=== PATIENT | female | born 1960 | race Caucasian/White ===

== ENCOUNTER → 2019-08-13 17:03 | Outpatient (CLI) | payer OTHER, SELFPAY ==
--- NOTE | 2019-08-13 17:30 | MRI_ITS ---
STUDY: MRI BRAIN WITH AND WITHOUT CONTRAST REASON FOR EXAM: Female, 59 years old. Hearing loss LEFT ear X 3 MONTHS TECHNIQUE: Standardized multiplanar fat and water weighted pulse sequences were obtained. 22ml Dotarem via IV was administered for the contrast portion of the examination. COMPARISON: MRI of the internal auditory canal with and without intravenous contrast. FINDINGS: There is mild cerebral atrophy with widening of the extra-axial spaces and ventricular dilatation. There are a limited number of small white matter hyperintensities, distributed throughout the deep white matter tracts of the cerebral hemispheres, consistent with mild chronic white matter ischemic changes. There is no evidence for recent intracranial ischemia or other cause of cytotoxic edema on diffusion weighted imaging (DWI). Normal bilateral frontal poles, and orbital frontal and gyrus recti of the frontal lobes. Normal bilateral temporal tips of the temporal lobes. There are no white matter shear injuries (diffuse axonal injuries). There are no parenchymal hemorrhages or hematomas. There are no findings to suggest prior closed head parenchymal injury of the brain. Normal bilateral basal ganglia. Normal thalami. There is no extra-axial fluid accumulation. Normal flow voids within the major intracranial circulation suggesting patency by spin echo criteria. Normal venous enhancement. There is no enhancing intra-axial or extra-axial abnormality. No demonstrated mass. Normal sella turcica, pituitary gland, infundibular stalk, optic chiasm and hypothalamus. Normal tectal plate and pineal gland. Normal midbrain, mitra and medulla. Normal cerebellum. Normal basal cisterns. Normal bilateral temporal bones. Normal bilateral internal auditory canals. No demonstrated orbital abnormality, within the constraints of a routine brain study. Normal visualized paranasal sinuses. Normal calvarium and skull base. Normal visualized soft tissue structures. IMPRESSION: Chronic ischemic and involutional changes of the brain, as described above. Electronically Signed: Francis Torres MD at 23:55 EDT , Service support , STUDY: MRI BRAIN WITH AND WITHOUT CONTRAST (ATTENTION INTERNAL AUDITORY CANALS - I.A.C.''s) REASON FOR EXAM: Female, 59 years old. Hearing loss LEFT ear X 3 MONTHS TECHNIQUE: Standardized multiplanar fat and water weighted pulse sequences were obtained. 22 ml of Dotarem contrast material was administered intravenously for the contrast portion of the examination. COMPARISON: MRI of the brain dated August 13, 2019 FINDINGS: Normal bilateral temporal bones. Normal bilateral internal auditory canals. There is no demonstrated intracanalicular or cisternal vestibular schwannoma (acoustic neuroma). There is no enhancement of the bilateral VIIth or VIIIth cranial nerves. Normal bilateral cochlea, vestibules and semicircular canals. No cerebellar angle or pontine mass is seen. No visualized enlargement of the trigeminal or abducens nerves. There is mild cerebral atrophy with widening of the extra-axial spaces and ventricular dilatation. There are a limited number of small white matter hyperintensities, distributed throughout the deep white matter tracts of the cerebral hemispheres, consistent with mild chronic white matter ischemic changes. Minimal mucus opacification is seen in the inferior aspect of the left mastoid air cells. The right mastoid air cells are clear. Normal flow voids within the major intracranial circulation suggesting patency by spin echo criteria. Normal venous enhancement. There is no enhancing intra-axial or extra-axial abnormality. There is no extra-axial fluid accumulation. Normal midbrain, mitra and medulla. Normal cerebellum. Normal basal cisterns. No demonstrated orbital abnormality, within the constraints of a routine brain study. Normal visualized paranasal sinuses. Normal calvarium and skull base. Normal visualized soft tissue structures. Normal visualized upper cervical spine. MRI/Brain W/WO Contrast IMPRESSION: 1. Normal unenhanced and enhanced MRI of the bilateral internal auditory canals (I.A.C''s). 2. Minimal mucus opacification is seen in the inferior aspect of the left mastoid air cells. The right mastoid air cells are clear. 3. CT of the temporal bones can be obtained for greater evaluation of the inner ear ossicles and fine bony detail that is best evaluated on CT, if this is clinically indicated. Electronically Signed: Francis Torres MD at 16:44 EDT , Service support ,
== END ==
PROVIDERS: PCP Student in an Organized Health Care Education/Training Program; Referring Provider Otolaryngology; Visit Provider Otolaryngology
DX: H93.12 Tinnitus, left ear (principal)
CPT/HCPCS: 70553; A9575

== ENCOUNTER 2022-03-14 08:58 | Emergency (ER) | payer OTHER, SELFPAY ==
[2022-03-14 08:59] VITALS: BP 205/78; PULSE 80; RESP 22; TEMP 36.3; O2SAT 97; BMI 44.1
--- NOTE | 2022-03-14 09:08 | RAD_ITS ---
STUDY: X-RAY CHEST REASON FOR EXAM: Female, 61 years old. Pre-op TECHNIQUE: Single AP portable view of the chest. COMPARISON: None. FINDINGS: The lungs are clear and expanded. There is no demonstrated pleural abnormality. There is mild cardiac enlargement. Normal mediastinum and cherelle. Normal visualized pulmonary arteries. Normal visualized aortic arch and descending thoracic aorta. Normal visualized thoracic spine. Normal visualized ribs, clavicles, and shoulders. There is no demonstrated abnormality of the visualized soft tissue structures of the upper abdomen. RAD/Chest 1 View (Portable) IMPRESSION: Cardiomegaly. The lungs are clear. Electronically Signed: Gamal Danielle MD at 10:07 [facility] ,
--- NOTE | 2022-03-14 09:08 | EKG12_ITS ---
Test Reason : Blood Pressure : / mmHG Vent. Rate : 071 BPM Atrial Rate : 071 BPM P-R Int : 142 ms QRS Dur : 086 ms QT Int : 414 ms P-R-T Axes : 021 -04 003 degrees QTc Int : 449 ms Normal sinus rhythm Minimal voltage criteria for LVH, may be normal variant ( R in aVL ) Borderline ECG Confirmed by BORIS PARDO, CHANTEL ([id number]), newspaper copy editor TOMMIE GARZA ([id number]) on 03/16/2022 10:33:46 AM Referred By: Confirmed By:CHANTEL ESCALANTE MD
--- NOTE | 2022-03-14 09:09 | RAD_ITS ---
STUDY: X-RAY - LEFT FEMUR REASON FOR STUDY: Female, 61 years old. Injury/Pain -- History of lesion femur, suspect pathologic fract TECHNIQUE: 4 view(s) of the femur. COMPARISON: None. FINDINGS: Transverse fracture through the mid shaft of the femur with underlying bony pathology suggestive of a pathological fracture. There is evidence of a lateral and anterior angulation. Soft tissue swelling. RAD/Femur Min 2 Views IMPRESSION: Pathological fracture through the midshaft of the femur with the lateral and anterior angulation. Electronically Signed: Gamal Danielle MD at 10:08 EST ,
--- NOTE | 2022-03-14 09:10 | ED.VIS.LOWEX ---
HPI History of Present Illness Chief Complaint: Lower Extremity Injury Detail of Chief Complaint: Deformity left lower extremity Informant: patient, parent and EMS Occured/Mechanism Comment: Patient was exiting the house using walker. Left leg gave. She developed instant pain and deformity to the left leg. Onset/Context/Timing Context: Sudden Onset Timing: Continuous Quality of Pain: - (Presently pain-free. Patient received 50 mg of ketamine and 50 mcg of fentanyl per EMS) Location: Left femur at home Current Severity: Gone Maximum Severity: Severe Worsened by: Suspected pathologic fracture Relieved by: 50 mg of ketamine and 50 mcg of fentanyl Associated Symptoms Associated Symptoms: Positive for Loss of Funtion Narrative Narrative: Patient is a 61-year-old woman recently admitted to outside facility who had x-rays that revealed a area of concern left femur. Per since patient is not able to give adequate history after receiving fentanyl and ketamine prehospital she had x-rays of the knee and hip which were unremarkable. There was area of concern femur. She was referred to Dr. Oskar Jiménez. She is scheduled for an outpatient MRI. states she was exiting the home using her walker. There was a snap and deformity to her left lower extremity. She did not fall. There was no head trauma. She was able to support herself with her right lower extremity. Per patient she has history of hypercholesterolemia and hypertension. She has no known allergies. She has not had any to eat or drink since last evening. Tetanus Immunization: Unknown Prior similar symptoms: No Recent Illness/Hospitalization: Yes [facility] Medical History Diabetes mellitus Hypercholesteremia Home Medications Lactobacillus acidophilus 10 billion cell capsule (Probiotic) 10,000 mmu cells PO DAILY [facility] 03/14/22 [History Last Taken 03/12/22] chlorthalidone 25 mg tablet 25 mg PO DAILY 03/14/22 [History Last Taken 03/13/22] cholecalciferol (vitamin D3) 50 mcg (2,000 unit) tablet 50 mcg PO DAILY 03/14/22 [History Last Taken 03/14/22] hydralazine 25 mg tablet 25 mg PO Q6H 03/14/22 [History Last Taken 03/13/22] losartan 100 mg tablet 100 mg PO DAILY 03/14/22 [History Last Taken 03/14/22] magnesium 250 mg tablet 250 mg PO DAILY SUPPLEMENT 03/14/22 [History Last Taken 03/13/22] metformin 500 mg tablet 500 mg PO DAILY 03/14/22 [History Last Taken 03/13/22] oxycodone-acetaminophen 5 mg-325 mg tablet 1 - 2 tab PO Q6H PRN Pain 03/14/22 [History Last Taken 03/14/22] rosuvastatin 10 mg tablet 10 mg PO DAILY 03/14/22 [History Last Taken 03/13/22] Allergy/AdvReac Type Severity Reaction Status Date / Time No Known Allergies Allergy Verified 05/30/16 10:38 Social History (Updated 03/14/22 @ 09:[address] Viktor Merino MD) household members: spouse Smoking Status: Never smoker alcohol intake: never substance use type: does not use ROS ROS ED Constitutional Constitutional ED: Denies chills, fever(s) or subjective Eyes Eyes: Denies blurry vision, change in vision or diplopia ENT ENT ED: Denies ear pain, rhinorrhea or sore throat Cardiovascular Cardiovascular: Denies chest pain, palpitations or racing heartbeat Respiratory/Chest Respiratory/Chest: Denies cough, dyspnea or dyspnea on exertion Gastrointestinal Gastrointestinal: Denies abdominal pain, nausea or vomiting Musculoskeletal Musculoskeletal: Reports other Details: Left thigh pain ; Denies arthralgias, back pain, myalgias or neck pain Integumentary Denies rash Neurologic Neurologic: Denies paresthesias or weakness Psychiatric Psychiatric: Denies anxiety or depression EXAM Physical Exam Const Vital Signs: 03/14/22 08:59 03/14/22 09:40 Temperature 97.3 F L Temperature Source Temporal Pulse Rate 80 75 Respiratory Rate 22 H 21 H Blood Pressure 205/78 H 155/74 H Blood Pressure Mean 120 101 Pulse Ox 97 97 Oxygen Delivery Method Room Air Room Air Positive well nourished, well developed and obese Constitutional Narrative: Patient is slow to respond. Eyes are glassy. General Appearance ED: well developed and NAD Nutritional Appearance: obese HEENT Reports moist mucous membranes HEENT Narrative: Ears normal. Nares patent. No evidence of dental trauma. No evidence of malocclusion. normocephalic and atraumatic Eyes PERRL Eyes Narrative: Extract muscle intact. There is no nystagmus. There is no scleral icterus. There subconjunctival hemorrhage. Neck full ROM and supple Chest Wall inspection of chest normal and palpation of chest normal Resp normal respiratory effort, no retractions and clear to auscultation bilaterally Cardio regular rate, regular rhythm, S1 normal heart sound, S2 normal heart sound and no murmurs GI non-tender, non-distended and no masses Auscultation: normoactive bowel sounds Palpation: soft Back/Spine Cervical Spine: Negative for cervical spine tenderness Extremity Negative for normal to inspection or full ROM Extremity Narrative: There is shortening of the left lower extremity. The foot is slightly externally rotated. DP and PT pulse are palpable. General Extremety ED: Yes weight-bearing difficulty; Negative for cyanosis or edema General Extremity: weight-bearing difficulty; Negative for cyanosis or edema Neuro oriented x3, CN's II-XII intact bilaterally and no sensory deficits noted Sensorium / Orientation: Negative for alert Plantar Reflex: Downgoing: bilateral Psych mental status grossly normal Skin no wounds Lesions: no lesions Rashes: no rashes MDM MDM MDM Narrative Medical decision making narrative: Is aSuspect patient has a pathologic fracture of her left femur. X-rays were obtained. Chest x-ray is obtained for preoperative clearance and restratification as well as EKG and appropriate blood work. Presently patient is in no pain. IV was established. She was made NPO. Of note initial blood pressure is elevated 205/78. Will monitor. Case discussed with Dr. Oskar Jiménez. Since this is a pathologic fracture he recommended transfer to [facility] with referral to orthopedic oncologist. [employer] has been transfer line at [facility] and asked for Dr. Jair Heller who is an orthopedic oncologist. Patient's blood pressure did improve after history of Dilaudid. Suspect this is due to pain. Dr. Heller did accept patient. She will be an ER to ER transfer. Rapid COVID was ordered. Lab Data Attestation: I reviewed the patient's lab results. Lab results narrative: White count is slightly elevated which is nonspecific. H&H is slightly higher than baseline. Basic metabolic panel reveals an elevated BUN/creatinine ratio of 22.6-1. Glucose is slightly elevated. Patient denies history of diabetes. Calcium slightly elevated 10.3. This will need to be followed. Labs: Laboratory Results - last 24 hr 03/14/22 03/14/22 09:10 09:10 WBC 12.2 H RBC 4.62 Hgb 13.3 Hct 40.2 MCV 87.0 MCH 28.8 MCHC 33.1 RDW Std Deviation 43.8 RDW Coeff of Mouna 13.8 Plt Count 230 MPV 9.7 Immature Gran % (Auto) 0.700 Neut % (Auto) 74.0 H Lymph % (Auto) 18.1 L [place] % (Auto) 5.3 Eos % (Auto) 1.4 Baso % (Auto) 0.5 Absolute Neuts (auto) 9.0 H Absolute Lymphs (auto) 2.20 Nucleated RBC % 0 Sodium 135 L Potassium 3.5 Chloride 98 Carbon Dioxide 26.0 Anion Gap 11 BUN 21 H Creatinine 0.93 Estim Creat Clear Calc 48.54 Est GFR (MDRD) Af Amer 79 Est GFR (MDRD) Non-Af 65 BUN/Creatinine Ratio 22.6 H Glucose 192 H Calcium 10.3 H Radiography X-Ray: Read by ED Physician (2 view x-ray of the left femur reveals a pathologic fracture midshaft with displacement of approximately 10 to 25%. This was independently reviewed and interpreted by me as was the chest x-ray at 0936. And angulation.) and - (Single view portable chest x-ray is limited since it is supine with limited inspiration. Clips from fall are noted. There is evidence of cardiomegaly. There is no evidence of hemothorax or pneumothorax. There is no obvious fractured ribs.) Diagnostic Testing: Clinical Impression(s) from Imaging Studies Chest X-Ray 03/14/22 09:08 IMPRESSION: Cardiomegaly. The lungs are clear. Electronically Signed: Gamal Danielle MD at 10:07 EST , Femur X-Ray 03/14/22 09:09 IMPRESSION: Pathological fracture through the midshaft of the femur with the lateral and anterior angulation. Electronically Signed: Gamal Danielle MD at 10:08 EST , Discharge Plan Triage Chief Complaint: Lower Extremity Injury ED Provider: Viktor Merino Dx/Rx/DC Orders Clinical Impression: Pathological fracture, left femur, initial encounter for fracture, Hypertension, Acute hyperglycemia, Hypercholesterolemia Prescriptions: No Action metformin 500 mg tablet 500 mg PO DAILY Label Comments: take 1 tablet by mouth once daily WITH A MEAL hydralazine 25 mg tablet 25 mg PO Q6H Label Comments: take 1 tablet by mouth four times a day losartan 100 mg tablet 100 mg PO DAILY Label Comments: take 1 tablet by mouth once daily rosuvastatin 10 mg tablet 10 mg PO DAILY Label Comments: take 1 tablet by mouth at bedtime cholecalciferol (vitamin D3) 50 mcg (2,000 unit) tablet 50 mcg PO DAILY Label Comments: take 1 tablet by mouth once daily with food chlorthalidone 25 mg tablet 25 mg PO DAILY Label Comments: take 1 tablet by mouth once daily oxycodone-acetaminophen 5-325 mg tablet 1 - 2 tab PO Q6H PRN (Reason: Pain) Label Comments: take 1 to 2 tablets by mouth every 6 hours if needed for pain magnesium 250 mg Tablet 250 mg PO DAILY Probiotic 10 billion cell Capsule 10,000 mmu cells PO DAILY Primary Care Provider: Denilson Parra Referrals: Denilson Parra DO [Primary Care Provider] - Disposition Disposition: Acute Care Hospital Discharge Location: [facility]
[2022-03-14 09:19] LABS: Basophil# 0.06 X10^3/uL; Basophil% 0.5 % (0-1); Eosinophil# 0.17 X10^3/uL; Eosinophils% 1.4 % (0-5); Hematocrit 40.2 % (37-47); Hemoglobin 13.3 g/dL (12.0-15.0); Lymphocyte % 18.1 % (19-41); Mean Corp Hgb Conc 33.1 g/dL (32-36); Mean Corpuscular Hgb 28.8 pg (27.0-32.0); Mean Platelet Vol. 9.7 fl (6.2-12.0); Monocyte# 0.65 X10^3/uL; Monocyte% 5.3 % (0-10); NRBC Flagged by Analyzer 0 % (0-5); Neutrophil # 9.01 X10^3/uL (2.7-7.7); Platelet Count 230 K/mm3 (150-450); RBC Distribution Width CV 13.8 % (11.6-14.6); RBC Distribution Width SD 43.8 fl (35.1-43.9); Red Blood Count 4.62 M/mm3 (4.2-5.4); White Blood Count 12.2 K/mm3 (4.4-11.0)
[2022-03-14 09:30] LABS: Anion Gap 11 (5-15); BUN 21 mg/dL (7-18); BUN/Creat Ratio 22.6 RATIO (10-20); Calcium,Total 10.3 mg/dL (8.5-10.1); Chloride 98 mmol/L (98-107); Creatinine, Serum 0.93 mg/dL (0.55-1.02); EST Glomerular Filtration Rate 65 mL/min (>60); Est Glom Filt Rate - Afr Amer 79 mL/min (>60); Estimated Creatinine Clearance 48.54 ml/min; Glucose 192 mg/dL (74-106); Potassium 3.5 mmol/L (3.5-5.1); Sodium Level 135 mmol/L (136-145)
[2022-03-14 09:40] VITALS: BP 155/74; PULSE 75; RESP 21; O2SAT 97
[2022-03-14] MEDS: HYDROmorphone 1 MG/ML Syringe IV ×2 (09:50→11:37)
[2022-03-14] MEDS: 0.9% Normal Saline 1,000 ML 150 ML IV (09:50)
--- NOTE | 2022-03-14 10:37 | ED.RN ---
ETA FOR [facility] IS 2142
[2022-03-14 10:43] VITALS: BP 169/82; PULSE 76; RESP 19; O2SAT 96
[2022-03-14 11:10] VITALS: BP 169/82; PULSE 79; RESP 19; O2SAT 96
[2022-03-14 11:44] VITALS: BP 150/71; PULSE 78; RESP 17; O2SAT 96
== END 2022-03-14 12:18 | disposition short-term general hospital (02) ==
PROVIDERS: Emergency Provider Emergency Medicine; PCP Student in an Organized Health Care Education/Training Program; Visit Provider Emergency Medicine
DX: M84.452A Pathological fracture, left femur, initial encounter for fracture (principal); E11.65 Type 2 diabetes mellitus with hyperglycemia; X58.XXXA Exposure to other specified factors, initial encounter; Y93.01 Activity, walking, marching and hiking; Y92.009 Unspecified place in unspecified non-institutional (private) residence as the place of occurrence of the external cause; E78.00 Pure hypercholesterolemia, unspecified; I10 Essential (primary) hypertension; Z79.84 Long term (current) use of oral hypoglycemic drugs; Z79.899 Other long term (current) drug therapy
CPT/HCPCS: 71045; 73552; 80048; 85025; 87428; 93005; 96361; 96374; 96376; 99285; J7030; A4216

== ENCOUNTER → 2022-06-14 | Outpatient (CLI) | payer OTHER, SELFPAY ==
--- NOTE | 2022-06-14 09:30 | PET_ITS ---
EXAMINATION: FDG PET-CT INDICATIONS: A 62-year-old female with a history of multiple myeloma presenting for apparent initial staging examination. COMPARISON EXAMINATION: None available INDEX LESION SIZE SUV INTERPRETATION Right lobe hepatic parenchyma segment VII (n=1) 18.9 mm 4.3 max > 2.0 Fulfills quantitative criteria for viable neoplasm. Appendicular, axial skeleton, calvarium 12.3 max Quantitative criteria for viable neoplasm are fulfilled. TECHNIQUE: Following the intravenous administration of 13.78 mCi of F-18 deoxyglucose via the left antecubital fossa, multiplanar image acquisitions of the head, neck, chest, abdomen and pelvis to level of mid-thigh, lower extremities obtained at one hour post radiopharmaceutical administration contemporaneously interpreted with the current CT of the head, neck, chest, abdomen and pelvis to level of mid-thigh, lower extremities dated 06/14/22 via coregistration reveal: SERUM GLUCOSE LEVEL: 133 mg/dl. HEIGHT: 61 inches. WEIGHT: 204 lbs. FINDINGS: Head/Neck: There is no evidence of abnormal increased glucose metabolism in the pharyngeal mucosal space, parapharyngeal space, bilateral-lateral and anterior neck, hypopharynx and distribution of the laryngeal structures. The visualized portion of the cerebral cortical-subcortical structures demonstrate symmetric and preserved glucose metabolism. CHEST: There is no quantitative scintigraphic evidence of abnormal increased glucose metabolism within the context of the bilateral hemithorax pulmonary parenchyma, right and left hemithoracic pleural interface, mediastinal structures and thoracic perihilum.? Pertinent chest CT findings are as follows. A left hemithorax pleural effusion is nonglucose avid. There is atherosclerotic calcification defined in the thoracic aorta without evidence of dilatation-aneurysm formation. Coronary arterial calcification is observed. Bilateral subcentimeter axillary soft tissue densities reveal no evidence of increased FDG uptake. Abdomen/Pelvis: A single focus of increased radiopharmaceutical concentration is noted within the right lobe hepatic parenchyma (2.7) involving segment VII. The calculated maximum standard uptake value is 4.3 with a lesion to liver background ratio greater than 2.0. The maximum axial diameter of the metabolic, morphologic abnormality is 18.9 mm. Normal physiologic distribution of the radiopharmaceutical is apparent in the splenic parenchyma, both renal units, bladder and visualized intestinal tract. Diffuse radiopharmaceutical concentration is noted in all four quadrants of the abdomen and pelvis. The abdomen and pelvis CT findings are as follows. Calcification is defined in the left adnexal region without evidence of increased tracer uptake. Soft tissue densities defined in the bilateral inguinal region as well as the anterior pelvic wall are nonglucose avid. The gallbladder is surgically absent. The left lobe of the liver is prominent in size extending to the lateral abdominal wall. Skeletal: Increased radiopharmaceutical concentration is defined in the left frontal parietal calvarium, the right temporal bone, multifocally apparent throughout the visualized appendicular and axial skeleton too many to individually articulate, multiple thoracic lumbar thoracic vertebra, bilateral ribs, the bilateral proximal humeral metaphysis-diaphysis, the left mid-distal humeral diaphysis, the proximal-distal right femoral diaphysis, the bilateral proximal tibial metaphysis, and bilateral hemipelvis. The calculated maximum standard uptake value is 12.3. PET/PET/CT Tumor WB Initial IMPRESSION: 1. ABNORMAL EXAMINATION INDICATIVE OF MALIGNANT-VIABLE NEOPLASM. 2. Increased radiopharmaceutical concentration manifest in the right lobe hepatic parenchyma fulfills quantitative criteria for viable neoplasm. (Maikel et al, Archives of Surgery, 133:510 1997) 3. Disseminated radiopharmaceutical concentration noted throughout the visualized appendicular and axial skeleton fulfills quantitative criteria for viable neoplasm. (Talat et al, Clinical Nuclear Medicine, 29:161, 2004). Electronic Signature Luis Downing D.O. Accurate Quantification of SUVs for this report are calculated using the exclusive [employer]. ([place].S. Patent No. [phone] [phone] B2 US [phone] [place] patent [phone]). Standardization and correction of the FDG SUV metric via ACCUQUAN technology allow for vendor non-specific objective quantitative examination comparison and optimization of the sensitivity and specificity of the FDG PET-CT examination. Electronically Signed: Luis Downing, at 6:46 EDT ,
== END | disposition home or self-care (01) ==
LOC: ONC 09:06
PROVIDERS: PCP Student in an Organized Health Care Education/Training Program; Referring Provider Internal Medicine Hematology & Oncology; Visit Provider Internal Medicine Hematology & Oncology
DX: C90.00 Multiple myeloma not having achieved remission (principal); G89.3 Neoplasm related pain (acute) (chronic); M89.8X9 Other specified disorders of bone, unspecified site; M25.561 Pain in right knee; M25.551 Pain in right hip
CPT/HCPCS: 78816; A9552

== ENCOUNTER → 2022-07-07 | Outpatient (CLI) | payer OTHER, SELFPAY ==
--- NOTE | 2022-07-07 13:11 | VDLE_ITS ---
Reason For Study: DVT RIGHT LEFT GSV is normal. GSV is normal. CFV is compressible, spontaneous, phasic, CFV is compressible, spontaneous, phasic, competent and demonstrates normal competent, and demonstrates normal augmentation. augmentation. FV is compressible, spontaneous, phasic, FV is compressible, spontaneous, phasic, competent and demonstrates normal competent and demonstrates normal augmentation. augmentation. POP V is compressible, spontaneous, phasic, POP V is compressible, spontaneous, phasic, competent and demonstrates normal competent and demonstrates normal augmentation. augmentation. T/P Trunk is compressible. T/P Trunk is compressible. PTV is compressible. PTV is compressible. RT PerV is compressible. LT PerV is compressible. Procedure This is a venous duplex using B-mode, color flow and spectral Doppler. Exam performed in department. The exam was diagnostic. A preliminary report was called and/or faxed to Dr. Michelle. VL/Venous Duplex US - Grupo Extrem Interpretation Summary No evidence for acute deep venous thrombosis bilateral lower extremities with p atent and compressible bilateral great saphenous veins. Ordering Physician: Moshe Michelle Performed By: Angel Azar RVT
== END | disposition home or self-care (01) ==
LOC: CVS 13:09
PROVIDERS: PCP Student in an Organized Health Care Education/Training Program; Referring Provider Internal Medicine Hematology & Oncology; Visit Provider Internal Medicine Hematology & Oncology
DX: M79.89 Other specified soft tissue disorders (principal); C90.00 Multiple myeloma not having achieved remission; R10.31 Right lower quadrant pain
CPT/HCPCS: 93970

== ENCOUNTER 2022-09-15 07:41 | Outpatient (CLI) | payer OTHER, SELFPAY | END 2022-09-15 07:42 | disposition home or self-care (01) | LOC: MEDOUTP 07:46 | PROVIDERS: PCP Student in an Organized Health Care Education/Training Program; Referring Provider Internal Medicine Hematology & Oncology; Visit Provider Internal Medicine Hematology & Oncology | DX: D64.9 Anemia, unspecified (principal) | CPT/HCPCS: 86850; 86870; 86900; 86901; 86920; 86921; 86922 ==